=== PATIENT | male | born 1970 | race Caucasian/White ===

== ENCOUNTER 2022-04-02 06:38 | Day surgery (SDC) | payer OTHER ==
[~2022-04-02] VITALS: Ht 182.9 cm; Wt 77.1 kg
[2022-04-02] MEDS ORDERED: fentaNYL citrate 0.05 MG/ML VIAL ONE (07:56)
[2022-04-02 08:18] LABS: BASOPHILS # (AUTO) 0.1 K/uL (0.00-0.22); EOSINOPHILS # (AUTO) 0.3 K/uL (0-0.4); EOSINOPHILS % (AUTO) 4.3 % (0.0-4.0); HEMATOCRIT 42.9 % (36-52); HEMOGLOBIN 14.7 g/dL (12.0-18.0); LYMPHOCYTES # (AUTO) 2.3 K/uL (2.0-11.5); LYMPHOCYTES % (AUTO) 29.6 % (20.5-51.1); MEAN CORPUSCULAR HEMOGLOBIN 32 pg (27-31); MEAN CORPUSCULAR HGB CONC 34 g/dL (33-37); MEAN CORPUSCULAR VOLUME 93.2 fL (80-94); MONOCYTES # (AUTO) 0.8 K/uL (0.8-1.0); MONOCYTES % (AUTO) 10.4 % (1.7-9.3); NEUTROPHILS # (AUTO) 4.2 K/uL (1.8-7.7); NEUTROPHILS % (AUTO) 54.7 % (42.2-75.2); PLATELET COUNT (AUTO) 288 K/uL (140-450); RED CELL DISTRIBUTION WIDTH 13.2 % (11.6-13.7); WHITE BLOOD COUNT (AUTO) 7.6 K/uL (4.8-10.8)
[2022-04-02] MEDS ORDERED: SEVOFLURANE 250 ML BTL INH ONE (09:00)
[2022-04-02] MEDS ORDERED: ONDANSETRON 4 MG/2 ML VIAL ONE (09:22)
[2022-04-02] MEDS ORDERED: PROPOFOL 200 MG/20 ML VIAL IV ONE (09:22)
[2022-04-02] MEDS ORDERED: SUCCINYLCHOLINE CHLORIDE 200 MG/10 ML VIAL IVP ONE (09:22)
== END 2022-04-02 11:03 | disposition home or self-care (01) ==
LOC: MOR 06:38 → MMU 06:41 → MOR 11:03
PROVIDERS: ATTEND Internal Medicine Gastroenterology
DX: K83.1 Obstruction of bile duct (principal); R10.10 Upper abdominal pain, unspecified; E78.00 Pure hypercholesterolemia, unspecified; F17.210 Nicotine dependence, cigarettes, uncomplicated; Z96.89 Presence of other specified functional implants; Z79.899 Other long term (current) drug therapy; Z20.822 Contact with and (suspected) exposure to COVID-19
CPT/HCPCS: 36415; 71045; 74328; 74330; 77003; 85025; 86677; J0330; J2405; J2704; J3010; Q0092; Q9967